=== PATIENT | female | born 1950 | race African-American/Black ===

== ENCOUNTER 2017-09-25 23:50 | Emergency (ER) | payer OTHER ==
[~2017-09-25] VITALS: Ht 165.1 cm; Wt 61.0 kg
[2017-09-26 00:04] VITALS: BP 163/84
== END 2017-09-26 01:20 | disposition left against medical advice (07) ==
LOC: ER 09-26 00:10
DX: R42 Dizziness and giddiness (principal); Z53.21 Procedure and treatment not carried out due to patient leaving prior to being seen by health care provider